=== PATIENT | female | born 1950 | race Caucasian/White ===

== ENCOUNTER 2017-03-28 13:28 | Emergency (ER) | payer OTHER ==
--- NOTE | ~2017-03-28 | CT113 ---
[facility] A Service [facility] RADIOLOGY TEXT RESULTS PATIENT: GARFIELD GANDHI LOCATION: SED : 54 UNIT #: [id number] AGE: [address]: Miguel Aponte MD SEX: F ORDER DR: [id number] [address] [address] [id number] MR#: [id number] #: [id number] NAME: GARFIELD GANDHI. : 1950 SEX: F STUDY DATE/TIME: 03/28/2017 17:33 UNIT: SED ROOM: STUDY DESCRIPTION: CT Sinuses Wo Contrast Attending Physician: Miguel Aponte M.D. Ordering Physician: Miguel Aponte M.D. Primary Care Physician: Primary Care Physician No MEDICAL IMAGING REPORT This report is preliminary unless electronic signature is present. EXAM CT sinus without contrast dated 03/28/[address] head without contrast dated 04/25/2008. HISTORY Headache, swelling of the face. Possible sinusitis. Symptoms have been going on for [address] of the sinuses was obtained in the axial plane followed by coronal and sagittal reformats. This CT examination was performed with one or more of the following radiation dose reduction techniques: automatic exposure control, adjustment of mA and/or kV according to patient size, and iterative reconstruction. Bilateral frontal, ethmoid, sphenoid and maxillary sinuses demonstrate mild mucosal thickening along the floor of the right maxillary antrum. Ostiomeatal complex is widely patent. Nasal septum is deviated to the right. Planum sphenoidale, david aide, fovea ethmoidalis and anterior clinoid processes are unremarkable. Mastoid air cells demonstrate mild right and moderate to severe left mastoid mucosal thickening. IMPRESSION Mild right maxillary sinus mucosal thickening. The other paranasal sinus and the draining ostiomeatal complex are patent. S-shaped nasal septal deviation is noted. Bilateral mastoid mucosal thickening is noted, worse on the left. Dictated by... Shantal Escamilla M.D. [facility] A Service [facility] RADIOLOGY TEXT RESULTS PATIENT: GARFIELD GANDHI [place] [facility] [place] 54 UNIT #: [id number] AGE: [address]: Miguel Aponte MD SEX: F ORDER DR: THIS IS AN ELECTRONICALLY VERIFIED REPORT Shantal Escamilla M.D. at 03/31/2017 9:15 AM CPR/maldonado TD: 03/29/2017 09:19 JOB #: [id number] MEDICAL IMAGING REPORT Page 1 of 1
[~2017-03-28 13:28] MED LIST: ANTIVERT PO; CARAFATE1 G PO; CARAFATE1 GM PO; CRESTOR PO; DIAZEPAM PO; HCTZ PO; HYDROCODON-ACE1 EAC9 PO; PROTONIX PO
[2017-03-28] MEDS ORDERED: NO MEDICATIONS (13:35)
[2017-03-28 15:27] LABS: BASOPHIL# 0.1 X10e3 (0-0.3); EOSINOPHIL% 0.4 % (0.0-7.0); HEMATOCRIT 45.6 % (35.0-45.0); HEMOGLOBIN 15.6 gm/dL (12.0-16.0); LYMPHOCYTE# 2.6 X10e3 (1.0-3.5); LYMPHOCYTE% 18.8 % (17.0-45.0); MEAN CELL VOLUME 91.9 FL (83-96); MEAN CORPUSCULAR HEMOGLOBIN 31.4 PG (28-34); MEAN CORPUSCULAR HGB CONC 34.2 g/dL (30-36); MEAN PLATELET VOLUME 9.3 FL (6.5-11.5); MONOCYTE% 7.2 % (3.0-12.0); NEUTROPHIL# 10.2 X10e3 (1.5-7.1); NEUTROPHIL% 72.6 % (40-75); PLATELET COUNT 301 X10e3 (140-420); RED BLOOD COUNT 4.96 X10e (3.90-5.30); RED CELL DISTRIBUTION WIDTH 13.9 % (11.0-15.5)
[2017-03-28 15:39] LABS: DIFF IND NO
[2017-03-28 15:47] LABS: ALBUMIN SERUM 4.2 g/dL (3.5-5.0); BILIRUBIN, DIRECT 0.2 mg/dL (0.0-0.2); BILIRUBIN,INDIRECT 0.6 mg/dL (0.0-0.9); BILIRUBIN,TOTAL 0.8 mg/dL (0.2-2.0); BUN/CREATININE RATIO 12.5; CREATININE SERUM 1.2 mg/dL (0.6-1.4); GLOM FILT RATE Estimated 47.7 mL/min (>60); PROTEIN TOTAL SERUM 8.3 g/dL (6.0-8.3)
== END 2017-03-28 18:52 ==
LOC: SED 13:28
PROVIDERS: Emergency Medicine
DX: L03.211 Cellulitis of face (principal); K21.9 Gastro-esophageal reflux disease without esophagitis; F17.210 Nicotine dependence, cigarettes, uncomplicated; Z98.890 Other specified postprocedural states
CPT/HCPCS: 36415; 70486; 80048; 80076; 83605; 85025; 86140; 96374; 96375; 99284; J0696; J2930